=== PATIENT | female | born 2000 | race Hispanic/Latino ===

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

== ENCOUNTER 2023-02-03 06:11 | Emergency (ER) | payer BC ==
[~2023-02-03] VITALS: Ht 152.4 cm; Wt 87.3 kg
[2023-02-03] MEDS ORDERED: 0.9%NACL 1000ML 2,500 ML IV ONE (06:30)
[2023-02-03] MEDS ORDERED: ONDANSETRON 4MG INJ IVP ONE (06:30)
[2023-02-03] MEDS ORDERED: DIPHENOXYLATE HCL/ATROPINE 2.5/0.025 MG TAB PO ONE (06:30)
[2023-02-03 06:50] LABS: BASOPHILS # (AUTO) 0.03 K/uL (0.00-0.20); BASOPHILS % (AUTO) 0.2 % (0.0-5.0); EOSINOPHILS # (AUTO) 0.03 K/uL (0.00-0.70); EOSINOPHILS % (AUTO) 0.2 % (0.0-8.0); HEMATOCRIT 44.3 % (36-48); IMMATURE GRANULOCYTE ABSOLUTE 0.05 K/uL (0-1); LYMPHOCYTES # (AUTO) 0.7 K/uL (1.0-4.8); LYMPHOCYTES % (AUTO) 4.9 % (21.0-51.0); MEAN CORPUSCULAR HEMOGLOBIN 29.8 pg (27.0-33.0); MEAN CORPUSCULAR HGB CONC 33.6 g/dL (32.0-36.0); MEAN CORPUSCULAR VOLUME 88.6 fL (79-99); MONOCYTES # (AUTO) 0.6 K/uL (0.1-1.0); MONOCYTES % (AUTO) 4.4 % (3.0-13.0); NEUTROPHILS # (AUTO) 12.1 K/uL (1.8-7.7); NEUTROPHILS % (AUTO) 89.9 % (40.0-77.0); PLATELET COUNT (AUTO) 325 K/uL (130-400); RED CELL DISTRIBUTION WIDTH 12.4 % (11.0-15.5); WHITE BLOOD COUNT (AUTO) 13.5 K/uL (4.8-10.8)
[2023-02-03 06:56] LABS: APPEARANCE,URINE CLEAR (CLEAR); BILIRUBIN,URINE NEGATIVE (NEGATIVE); COLOR,URINE YELLOW (YELLOW); GLUCOSE, URINE (UA) NEGATIVE (NEGATIVE); KETONES,URINE NEGATIVE (NEGATIVE); LEUKOCYTE ESTERASE ,URINE NEGATIVE Leu/uL (NEGATIVE); NITRATE,URINE NEGATIVE (NEGATIVE); OCCULT BLOOD,URINE NEGATIVE (NEGATIVE); PH,URINE 6.5 (5.0-8.0); PROTEIN,URINE 20 mg/dL (NEGATIVE); UROBILINOGEN,URINE 0.2 mg/dL (0.2-1.0)
[2023-02-03 07:02] LABS: ADD UA MICROSCOPIC YES
[2023-02-03 07:04] LABS: MUCUS,URINE RARE LPF (None Seen); RBC,URINE 0-1 /HPF (0-1); SQUAMOUS EPITHELIAL CELL,UR RARE /HPF (0-2)
[2023-02-03 07:09] LABS: ALBUMIN 3.9 g/dL (3.5-5.0); BILIRUBIN,TOTAL 0.4 mg/dL (0.2-1.0); CREATININE 0.7 mg/dL (0.5-1.5); POTASSIUM 3.9 mmol/L (3.5-5.1); TOTAL PROTEIN, SERUM 7.7 g/dL (6.0-8.3)
[2023-02-03 07:15] LABS: CREATINE KINASE, TOTAL 55 U/L (21-232); HCG,QUANTITATIVE 0 mIU/mL (0-5)
[2023-02-03 07:49] LABS: SARS-CoV-2, RNA, NAAT NEGATIVE SARS CoV-2 (NEGATIVE)
[2023-02-03 07:53] LABS: INFLUENZA TYPE A Negative For Type A (NEGATIVE); INFLUENZA TYPE B Negative For Type B (NEGATIVE)
[2023-02-03 08:49] VITALS: TEMP 99
[2023-02-03] MEDS ORDERED: ACETAMINOPHEN 500 MG TABLET PO ONE ×2 (09:00)
[2023-02-03 09:20] VITALS: BP 124/78; PULSE 106; RESP 18; O2SAT 98
[2023-02-03] MEDS ORDERED: ONDA4TAB10 PO (09:52)
== END 2023-02-03 10:09 | disposition home or self-care (01) ==
LOC: EDH 06:11
DX: A08.4 Viral intestinal infection, unspecified (principal); Z20.822 Contact with and (suspected) exposure to COVID-19
CPT/HCPCS: 99284; 96374; 87635; 96361; 82550; 80053; 84702; 83690 ×2; 85025; 87804 ×2; 81001; 81025; 36415; 93005; C9803; J7030; J2405

== ENCOUNTER 2024-08-05 12:35 | Emergency (ER) | payer BC ==
[~2024-08-05] VITALS: Ht 152.4 cm; Wt 76.7 kg
[~2024-08-05 12:35] MED LIST: ONDA-243 PO
[2024-08-05 13:23] LABS: APPEARANCE,URINE CLOUDY (CLEAR); BILIRUBIN,URINE NEGATIVE (NEGATIVE); COLOR,URINE YELLOW (YELLOW); GLUCOSE, URINE (UA) NEGATIVE (NEGATIVE); KETONES,URINE 100 mg/dL (NEGATIVE); LEUKOCYTE ESTERASE ,URINE 25 Leu/uL (NEGATIVE); NITRATE,URINE NEGATIVE (NEGATIVE); OCCULT BLOOD,URINE SMALL (NEGATIVE); PROTEIN,URINE 20 mg/dL (NEGATIVE); UROBILINOGEN,URINE 0.2 mg/dL (0.2-1.0)
[2024-08-05 13:24] LABS: BASOPHILS # (AUTO) 0.01 K/uL (0.00-0.20); BASOPHILS % (AUTO) 0.1 % (0.0-5.0); EOSINOPHILS # (AUTO) 0.01 K/uL (0.00-0.70); EOSINOPHILS % (AUTO) 0.1 % (0.0-8.0); HEMATOCRIT 44.7 % (36-48); IMMATURE GRANULOCYTE ABSOLUTE 0.04 K/uL (0-1); LYMPHOCYTES % (AUTO) 7.3 % (21.0-51.0); MEAN CORPUSCULAR HEMOGLOBIN 29.8 pg (27.0-33.0); MEAN CORPUSCULAR HGB CONC 34.5 g/dL (32.0-36.0); MEAN CORPUSCULAR VOLUME 86.5 fL (79-99); MONOCYTES # (AUTO) 0.6 K/uL (0.1-1.0); MONOCYTES % (AUTO) 4.2 % (3.0-13.0); NEUTROPHILS # (AUTO) 11.4 K/uL (1.8-7.7); PLATELET COUNT (AUTO) 391 K/uL (130-400); RED BLOOD CELL COUNT(AUTO) 5.17 MIL/uL (4.00-5.50); RED CELL DISTRIBUTION WIDTH 12.3 % (11.0-15.5)
[2024-08-05 13:26] LABS: ADD UA MICROSCOPIC YES
[2024-08-05 13:27] LABS: CREATININE 0.7 mg/dL (0.5-1.0)
[2024-08-05] MEDS: 0.9%NACL 1000ML 1,000 ML IV STA (13:27)
[2024-08-05] MEDS: ondanSETRON 4MG INJ IVP STA (13:28)
[2024-08-05] MEDS: FAMOTIDINE 20MG VIAL IV STA (13:28)
[2024-08-05 13:30] LABS: BACTERIA,URINE RARE /HPF (None Seen); MUCUS,URINE RARE LPF (None Seen); SQUAMOUS EPITHELIAL CELL,UR FEW /HPF (0-2)
[2024-08-05 13:38] LABS: BILIRUBIN,DIRECT 0.1 mg/dL (0.0-0.3); BILIRUBIN,TOTAL 0.7 mg/dL (0.2-1.0); TOTAL PROTEIN, SERUM 8.2 g/dL (6.0-8.3)
[2024-08-05] MEDS: ketOROlac 15MG/ML VIAL (15MG/ML) IV STA (14:03)
[2024-08-05] MEDS ORDERED: ONDA-243 PO (14:24)
[2024-08-05] MEDS ORDERED: DICY20TA2 PO (14:27)
[2024-08-05] MEDS ORDERED: FAMO-136 PO (14:27)
--- NOTE | 2024-08-05 14:27 | ERN ---
ED Note History of Present Illness Stated Complaint: VOMITTING,DIARRHE Chief Complaint: Nausea,Vomiting,Diarrhea Time Seen by MD: 12:36 Time Seen by Midlevel: 13:40 Dictation: 24 y/o female c/o generalized abdominal pain, nausea, vomiting and diarrhea onset last night. States last thing she ate was fish. 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 Moris any fevers, blood is stool or emesis . No other complaints. Allergies: Coded Allergies: No Known Allergies (Unverified Allergy, Unknown, 02/03/23) Home Meds Active Scripts Ondansetron (Ondansetron Odt) 4 Mg Tab.rapdis, 4 MG PO Q6HPRN PRN for nausea, #16 TAB 2 Refills Prov:REINA SHULTZ Sr., MD 02/03/23 Past Medical History Past Medical History: No Pertinent History Surgical History: None Review of System Dictation Constitutional: Negative for fever,chills, and weight loss Eyes: Negative for injury, pain,redness, and discharge ENT: Negative for injury,pain or swelling Cardiovascular: Negative for chest pain, palpitations, and edema Respiratory: Negative for shortness of breath, cough, and wheezing, Abdomen/GI: Complaining of generalized abdominal pain, nausea and vomiting and diarrhea Back: Negative for injury and pain : Negative for injury, bleeding and discharge MS/Extremity: Negative for injury and deformity Skin: Negative for rash, and discoloration Neuro: Negative for headache, weakness, numbness, tingling, and seizure Psych: Negative for suicide ideation, homicidal ideation, and hallucinations Review of Systems: was completed Initial Vital Sign VS Vital Signs Date Time Temp Pulse Resp B/P (MAP) Pulse Ox O2 Delivery O2 Flow Rate FiO2 08/05/24 12:42 97.2 112 18 144/93 97 Room Air 08/05/24 13:17 0 21 Physical Exam Dictation General: awake, alert, NAD Head/Face: Normocephalic, atraumatic Eyes: PERRL, EOMI, vision at baseline ENT: oral cavity clear, TMs clear, no signs of infection Neck: Trachea midline, supple, no nuchal rigidity Cardiovascular: RRR, normal S1/S2, No MRGs, no JVD Respiratory: CTAB, no respiratory distress, No rales or wheezes Abdomen: Soft, non-tender, non-distended, normal bowel sounds, no guarding or rebound. Skin: Warm, dry, normal turgor, no rash MS/Extremity: Pulses equal, no cyanosis, neurovascular intact, FROM Neuro: COAx4, GCS 15, strength 5/5, CN 2-12 intact, normal cerebellar exam, normal gait, Psych: Normal behavior, mood, and affect normal Results (Laboratory/Radiology) Laboratory/Radiology Laboratory Tests Test 08/05/24 13:07 08/05/24 13:15 White Blood Count 13.0 K/uL (4.8-10.8) H Red Blood Count 5.17 MIL/uL (4.00-5.50) Hemoglobin 15.4 g/dL (12.0-16.0) Hematocrit 44.7 % (36-48) Mean Corpuscular Volume 86.5 fL (79-99) Mean Corpuscular Hemoglobin 29.8 pg (27.0-33.0) Mean Corpuscular Hemoglobin Concent 34.5 g/dL (32.0-36.0) Red Cell Distribution Width 12.3 % (11.0-15.5) Platelet Count 391 K/uL (130-400) Mean Platelet Volume 9.2 fL (7.5-10.5) Immature Granulocyte % (Auto) 0.3 % (0-1) Neutrophils (%) (Auto) 88.0 % (40.0-77.0) H Lymphocytes (%) (Auto) 7.3 % (21.0-51.0) L Monocytes (%) (Auto) 4.2 % (3.0-13.0) Eosinophils (%) (Auto) 0.1 % (0.0-8.0) Basophils (%) (Auto) 0.1 % (0.0-5.0) Neutrophils # (Auto) 11.4 K/uL (1.8-7.7) H Lymphocytes # (Auto) 1.0 K/uL (1.0-4.8) Monocytes # (Auto) 0.6 K/uL (0.1-1.0) Eosinophils # (Auto) 0.01 K/uL (0.00-0.70) Basophils # (Auto) 0.01 K/uL (0.00-0.20) Absolute Immature Granulocyte (auto 0.04 K/uL (0-1) Nucleated Red Blood Cells 0.0 % (0.0-0.19) Sodium Level 139 mmol/L (136-145) Potassium Level 4.0 mmol/L (3.5-5.1) Chloride Level 101 mmol/L (101-111) Carbon Dioxide Level 27 mmol/L (21-32) Blood Urea Nitrogen 15 mg/dL (7-18) Creatinine 0.7 mg/dL (0.5-1.0) Glomerular Filtration Rate Calc 123 mL/min (>90) Random Glucose 108 mg/dL (70-105) H Total Calcium 9.1 mg/dL (8.5-10.1) Total Bilirubin 0.7 mg/dL (0.2-1.0) Direct Bilirubin 0.1 mg/dL (0.0-0.3) Aspartate Amino Transf (AST/SGOT) 19 U/L (10-37) Alanine Aminotransferase (ALT/SGPT) 26 U/L (12-78) Alkaline Phosphatase 86 U/L (50-136) Total Protein 8.2 g/dL (6.0-8.3) Albumin 4.0 g/dL (3.5-5.0) Lipase 22 U/L (16-77) Human Chorionic Gonadotropin, Quant 0 mIU/mL (0-5) Urine Color YELLOW (YELLOW) Urine Appearance CLOUDY (CLEAR) H Urine pH 6.0 (5.0-8.0) Urine Specific [place] 1.033 (1.001-1.031) Urine Protein 20 mg/dL (NEGATIVE) H Urine Glucose (UA) NEGATIVE mg/dL (NEGATIVE) Urine Ketones 100 mg/dL (NEGATIVE) H Urine Occult Blood SMALL (NEGATIVE) H Urine Nitrate NEGATIVE (NEGATIVE) Urine Bilirubin NEGATIVE mg/dL (NEGATIVE) Urine Urobilinogen 0.2 mg/dL (0.2-1.0) Urine Leukocyte Esterase 25 Raza/uL (NEGATIVE) H Urine RBC 11-25 /HPF (0-1) H Urine WBC 6-10 /HPF (0-1) H Urine Squamous Epithelial Cells FEW /HPF (0-2) Urine Bacteria RARE /HPF (None Seen) Labs Reviewed?: Yes ED Course ED Course Orders Procedure Category Date Status Time Cbc With Differential LAB 08/05/24 In Process 12:48 Basic Metabolic Panel LAB 08/05/24 Complete 12:48 Hcg,Quantitative LAB 08/05/24 Complete 12:48 0.9%Nacl 1000ml (Ns PHA 08/05/24 Complete 1000ml) 12:48 Ondansetron 4mg Inj PHA 08/05/24 Complete (Zofran 4mg Inj) 12:48 Famotidine 20mg Vial PHA 08/05/24 Complete (Pepcid 20mg Vial) 12:48 Urinalysis Profile LAB 08/05/24 Complete 12:52 Hepatic Function Panel LAB 08/05/24 Complete 12:48 Lipase LAB 08/05/24 Complete 12:48 Culture Urine YIFNA 08/05/24 In Process 13:33 Ketorolac PHA 08/05/24 Complete Tromethamine 15mg/Ml 13:46 Current Medications Medications (Trade) Dose Ordered Sig/Benita Route PRN Reason Start Time Stop Time Status Last Admin Dose Admin Famotidine (Pepcid 20mg Vial) 20 mg ONCE STAT IV 08/05/24 12:48 08/05/24 12:51 DC 08/05/24 13:28 Ketorolac Tromethamine (toRADol) 15 mg ONCE STAT IV 08/05/24 13:46 08/05/24 13:48 DC 08/05/24 14:03 Ondansetron HCl (zoFRAN 4MG INJ) 4 mg ONCE STAT IVP 08/05/24 12:48 08/05/24 12:51 DC 08/05/24 13:28 Sodium Chloride 1,000 ml @ 1,000 mls/hr Q1H STAT IV 08/05/24 12:48 08/05/24 13:47 DC 08/05/24 13:27 Vital Signs Date Time Temp Pulse Resp B/P (MAP) Pulse Ox O2 Delivery O2 Flow Rate FiO2 08/05/24 13:17 97.2 112 18 144/93 97 Room Air* 0 21 08/05/24 12:42 97.2 112 18 144/93 97 Room Air Medical Decision Making MDM MDM: 24 y/o female c/o generalized abdominal pain, nausea, vomiting and diarrhea onset last night. States last thing she ate was fish. 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 Moris any fevers, blood is stool or emesis . No other complaints. CBC shows white count of 13, this could be elevated due to status of vomiting. No anemia, no thrombocytopenia. Chemistry unremarkable. No transaminitis, lipase within normal range. UA shows no evidence of urinary tract infection. Patient is not . No right lower quadrant tenderness on abdominal exam. Abdomen is soft, nondistended, no right lower quadrant, low suspicion for appendicitis or acute abdomen. After fluids and medication patient feels much better. Discussed with the patient's findings. 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 Discussed that we will prescribe medication to take at home educated on diet. Patient verbalized understanding, answered all questions. Differential diagnosis:gastroenteritis, pancreatitis, gastritis. Rationale: Tests considered and ordered secondary to shared decision making include: Previous outside records reviewed: Old ER visits. Risk of complication and/or morbidity or mortality of patient management: None Medications-Per medication reconciliation Need for hospitalization: Patient does not meet criteria for hospitalization. Need for emergency major/minor surgery: No There are no social concerns with this patient. Prescription drug management Prescriptions will include symptomatic care Patient's prior external medical records from other ER visits were reviewed by me as indicated. Prior testing and results from previous visits were reviewed. Prior tests were taken into account with medical decision making and resource utilization, independent historian/historians were used to obtain complete medical history. I independently interpreted the test that were performed, results were reviewed by me and considered findings on radiology if ordered. Medical management and examination interpretation discussions were had by me with other qualified healthcare professionals as indicated for the patient's care. DX & DISP Disposition: Discharge Departure Impression: Primary Impression: Gastroenteritis Condition: Stable Scripts Dicyclomine HCl (Bentyl) 20 Mg Tab 1 TAB PO BID for irritable bowel symptoms for 5 Days, #10 TAB 0 Refills Prov: CHAMBERS,GARETH SECOND OFFICER 08/05/24 Famotidine (Pepcid) 20 Mg Tablet 1 TAB PO BID for 30 Days, #60 TAB 0 Refills Prov: CHAMBERS,GARETH SECOND OFFICER 08/05/24 Ondansetron (Ondansetron Odt) 4 Mg Tab.rapdis 4 MG PO Q6HPRN PRN for nausea for 3 Days, #12 TAB 0 Refills Prov: CHAMBERS,GARETH SECOND OFFICER 08/05/24 Additional Instructions: Continue a liquid diet until tolerated. Continue to stay hydrated, avoid any sugary drinks, fried food, spicy foods. Increase diet as tolerated. Follow up with PCP in 1-2 days or return to the hospital if you can not keep any food or fluids down despite taking your nausea medication. Referrals: SELF,REFERRAL (PCP) Time of Disposition: 14:23 I have reviewed the case, and I agree with, Diagnosis and Plan GARETH CHAMBERS NP Aug 05, 2024 14:27
[2024-08-05 14:55] VITALS: BP 132/74; PULSE 92; RESP 18; TEMP 97.2; O2SAT 97
== END 2024-08-05 14:57 | disposition home or self-care (01) ==
LOC: EDH 12:35
DX: K52.9 Noninfective gastroenteritis and colitis, unspecified (principal); R10.2 Pelvic and perineal pain; Z79.899 Other long term (current) drug therapy
CPT/HCPCS: 99284; 96374; 96375; 80076; 80048; 84702; 83690; 85025; 87086; 81001; 36415; J1885; J3490; J7030; J2405